=== PATIENT | male | born 1995 | race Caucasian/White ===

== ENCOUNTER 2017-01-18 14:42 | Emergency (ER) | payer SELFPAY ==
[~2017-01-18] VITALS: Ht 180.3 cm; Wt 68.0 kg
[~2017-01-18 14:42] MED LIST: DICL50 PO; NAPR500 PO
[2017-01-18 14:43] VITALS: BP 111/73; PULSE 65; RESP 17; TEMP 97.7; O2SAT 100
[2017-01-18] MEDS ORDERED: BACT800T5 PO (15:42)
[2017-01-18] MEDS ORDERED: CEPH-460 PO (15:42)
--- NOTE | 2017-01-18 15:46 | PD ---
HPI Chief Complaint: Skin Problem Time Seen by Provider: 15:41 Travel History International Travel<30 days: No Contact w/Intl Traveler<30days: No Traveled to known affect area: No History of Present Illness HPI 21-year-old male presents emergency Department with complaint of a rash to bilateral upper and lower extremities times one to 2 weeks. Denies the rash is itchy. Said he smoked and injected crack cocaine and then he got this rash. He reports history of MRSA. Denies fever, vomiting. Has not taken any medications or tried any treatments to alleviate his symptoms. Symptoms are mild in severity. No known allergies. Has no other medical complaints. No other modifying factors or associated signs and symptoms. PFSH Past Medical History Hx Anticoagulant Therapy: No Cardiovascular Problems: No Chemotherapy: No Cerebrovascular Accident: No Diabetes: No Respiratory: No Social History Alcohol Use: Yes Tobacco Use: Yes Allergies-Medications (Allergen,Severity, Reaction): Coded Allergies: No Known Allergies (Unverified , 02/15/16) Reported Meds & Prescriptions Reported Meds & Active Scripts Active Bactrim DS (Sulfamethoxazole-Trimethoprim) 800-160 Mg Tab 1 Tab PO BID 10 Days Keflex (Cephalexin) 500 Mg Cap 500 Mg PO Q6H 10 Days Review of Systems Except as stated in HPI: all other systems reviewed are Neg Physical Exam Narrative GENERAL: Well-nourished, well-developed male patient, in no acute distress; appears intoxicated; afebrile, nontoxic-appearing SKIN: Warm and dry. Multiple scabbed and crusted lesions to bilateral upper and lower extremities; no cellulitic areas noted; no drainage or edema noted; most lesions are surrounded by a very minimal ring of erythema. HEAD: Atraumatic. Normocephalic. EYES: Pupils equal and round. No scleral icterus. No injection or drainage. ENT: Mucosa pink and moist. Airway patent. NECK: Trachea midline. CARDIOVASCULAR: Regular rate. RESPIRATORY: No accessory muscle use. GASTROINTESTINAL: Flat. MUSCULOSKELETAL: No obvious deformities. No clubbing. No cyanosis. No edema. NEUROLOGICAL: Awake and alert. Oriented 3. No obvious cranial nerve deficits. Motor grossly within normal limits. Normal speech. PSYCHIATRIC: Appropriate mood and affect; insight and judgment normal. Data Data Last Documented VS Vital Signs Date Time Temp Pulse Resp B/P (MAP) Pulse Ox O2 Delivery O2 Flow Rate FiO2 01/18/17 15:50 01/18/17 14:43 97.7 65 17 100 MDM Medical Decision Making Medical Screen Exam Complete: Yes Emergency Medical Condition: Yes Medical Record Reviewed: Yes Differential Diagnosis MRSA, Staphylococcus infection, impetigo Narrative Course 21-year-old male with multiple scabbed and crusted lesions to bilateral upper and lower extremities. Patient is afebrile and nontoxic-appearing. Reports IV drug use. He denies fever, vomiting. Bactrim, Keflex prescribed for home. Instructed patient to follow up with primary care provider. Patient verbalizes understanding and agreement with treatment plan. Patient is medically cleared and stable for discharge. Discussed reasons to return to the emergency department. Patient agrees with treatment plan. The patients vital signs are stable and the patient is stable for outpatient follow-up and treatment. Patient discharged home, stable and in no acute distress. Diagnosis Primary Impression: Skin lesions, generalized Referrals: [facility] [employer] [facility] Primary Care Physician Patient Instructions: Abscess (ED), General Instructions, Impetigo (ED), MRSA ( Methicillin-Resistant Staphylococcus Aureus) (ED) Additional Instructions: Antibiotics as prescribed Ibuprofen or Tylenol as directed and as needed for pain Keep areas clean and dry Follow-up with primary care provider Follow-up with dermatology Return to the emergency department immediately for worsening of symptoms Med/Other Pt SpecificInfo: Prescription(s) given Scripts Sulfamethoxazole-Trimethoprim (Bactrim DS) 800-160 Mg Tab 1 TAB PO BID for Infection for 10 Days, TAB 0 Refills Prov: Yary Chris 01/18/17 Cephalexin (Keflex) 500 Mg Cap 500 MG PO Q6H for Infection for 10 Days, CAP 0 Refills Prov: Yary Chris 01/18/17 Disposition: 01 DISCHARGE HOME Condition: Stable Yary Chris Jan 18, 2017 15:46
== END 2017-01-18 16:18 | disposition home or self-care (01) ==
LOC: NEPK 14:42
DX: L98.9 Disorder of the skin and subcutaneous tissue, unspecified (principal)
CPT/HCPCS: 99284